=== PATIENT | female | born 1965 | race Two or more races ===

== ENCOUNTER 2024-02-21 13:48 | Emergency (ER) | payer OTHER ==
[2024-02-21 14:02] VITALS: RESP 16; BMI 22.1
[2024-02-21] MEDS ORDERED: ONDANSETRON *ODT* 4 MG TABLET ONE (14:43)
[2024-02-21] MEDS: ONDANSETRON *ODT* 4 MG TABLET SL ONE (14:50)
[2024-02-21] MEDS ORDERED: ACETAMINOPHEN 325 MG TABLET (FP) ONE (15:43)
[2024-02-21] MEDS: ACETAMINOPHEN 325 MG TABLET (FP) PO ONE (15:45)
[2024-02-21] MEDS: LACTATED RINGERS SOLUTION 1,000 ML/1,000 ML INFUS.BAG IV STA (16:00)
[2024-02-21 16:25] LABS: HEMATOCRIT 36.5 % (32.4-45.2); HEMOGLOBIN 12.4 G/dL (10.7-15.3); MEAN CELL VOLUME 94.2 fl (80-96); MEAN PLT VOLUME 8.2 fl (7.5-11.1); PLATELET COUNT 258.5 10^3/uL (134-434); RBC 3.88 10^6/uL (3.60-5.2); WHITE BLOOD COUNT 9.6 10^3/uL (4.0-10.8)
[2024-02-21 16:37] LABS: ALBUMIN 4.1 g/dl (3.4-5.0); BILIRUBIN,TOTAL 0.4 mg/dl (0.2-1); CALCIUM 8.9 mg/dl (8.5-10.1); CREATININE 0.7 mg/dl (0.6-1.3); POTASSIUM 3.8 mmol/L (3.5-5.1); TOT PROT 6.8 g/dl (6.4-8.2)
[2024-02-21 16:52] LABS: PLATELET ESTIMATE ADEQUATE
[2024-02-21 17:14] VITALS: BP 81/60; PULSE 95; TEMP 98.8
== END 2024-02-21 17:19 | disposition home or self-care (01) ==
LOC: FER 13:48
PROC: 3E0337Z Introduction of Electrolytic and Water Balance Substance into Peripheral Vein, Percutaneous Approach (ICD-10-PCS; principal; 2024-02-21)
DX: R11.2 Nausea with vomiting, unspecified (principal); R51.9 Headache, unspecified; R19.7 Diarrhea, unspecified; M79.10 Myalgia, unspecified site; R30.0 Dysuria; R53.83 Other fatigue; Z20.822 Contact with and (suspected) exposure to COVID-19
CPT/HCPCS: 0241U-QW; 36415; 80053; 81003; 85025; 87086; 99284-25; Q0162